=== PATIENT | male | born 1990 | race African-American/Black ===

== ENCOUNTER 2022-12-17 17:03 | Emergency (ER) | payer OTHER, SELFPAY ==
[2022-12-17 17:38] VITALS: BP 113/64; PULSE 50; RESP 18; TEMP 36.6; O2SAT 99
--- NOTE | 2022-12-17 19:24 | ED.SKABFB ---
HPI - Skin/Abscess/Foreign Bdy General Chief complaint: Skin/Abscess/Foreign Body <MARCO Thomas Last Filed: 12/17/22 23:03> Stated complaint: rash/? allergic reaction <MARCO Thomas Last Filed: 12/17/22 23:03> Time Seen by Provider: 12/17/22 18:54 <MARCO Thomas Last Filed: 12/17/22 23:03> Source: patient <MARCO Thomas Last Filed: 12/17/22 23:03> Mode of arrival: ambulatory <MARCO Thomas Last Filed: 12/17/22 23:03> Limitations: no limitations <MARCO Thomas Last Filed: 12/17/22 23:03> History of Present Illness HPI narrative: Patient is a 31 y/o male who presents to the ED with c/o rash to his R inguinal region, trunk, and back. Patient reports having an erythematous rash over the last 3 to 4 days. He states it is extremely itchy and the pruritus became worse today, which prompted his presentation. Patient has not tried anything for the rash. He denies pain associated with the rash. Denies any household members with similar symptoms. Denies fever, chills, nausea, vomiting. Denies new laundry detergents, soaps, shampoos, lotions, medications. Denies outdoor exposure. <MARCO Thomas Last Filed: 12/17/22 23:03> Related Data Allergies/Adverse reactions: Allergies Allergy/AdvReac Type Severity Reaction Status Date / Time No Known Allergies Allergy Unverified 08/28/15 17:49 <MARCO Thomas Last Filed: 12/17/22 23:03> Review of Systems Review of Systems: CONSTITUTIONAL: Denies fever, chills, or sweats. GASTROINTESTINAL: Denies nausea, vomiting. SKIN: See HPI. <MARCO Thomas Last Filed: 12/17/22 23:03> All systems reviewed & are unremarkable except as noted in HPI and below <Odalis Silverman PA-C - Last Filed: 12/17/22 23:03> [facility] Past Medical History Medical History: Medical History No pertinent past medical history <Odalis Silverman PA-C - Last Filed: 12/17/22 23:03> Surgical History Surgical History: Surgical History No pertinent past surgical history <Odalis Silverman PA-C - Last Filed: 12/17/22 23:03> Social History Social History: Social History Smoking status: Never smoker <Odalis Silverman PA-C - Last Filed: 12/17/22 23:03> Exam Narrative: GENERAL: Well appearing, well-nourished, non-toxic, in no acute distress. HEAD: Normocephalic, atraumatic. NECK: Supple. No adenopathy, no masses. RESPIRATORY: Airway patent, respirations nonlabored. CARDIOVASCULAR: Regular rate and rhythm without murmurs, rubs, or gallops. Peripheral pulses 2+ and equal bilaterally. MUSCULOSKELETAL: Moves all extremities. Strength/ROM intact without gross deformities. Scattered erythematous papules diffusely throughout the trunk, abdomen, back, right groin/waistband region. Some papules with excoriations/scabbing. No urticaria. No pustules. No vesicles. No significant burrows. No lesions on hands that are visible. SKIN: Warm, dry, normal color. No rashes. NEURO: A&O X3. Speech clear. Cranial nerves II-XII grossly intact. Steady gait. No ataxic movements. PSYCHIATRIC: Appropriate mood and affect. Normal interaction. <Odalis Silverman PA-C - Last Filed: 12/17/22 23:03> Course [employer]/PA Physician Supervision This is a was performed by both a physician and an APC. I performed all aspects of the MDM as documented w/ the following additions: 31-year-old presenting with a pruritic rash. Possibly scabies. He will be trialed on a course of permethrin. Follow up primary care physician. All questions answered. Patient in agreement w/ disposition. <Pelon Corado MD - Last Filed: 12/23/22 20:52> Vital Signs Vital signs:
== END 2022-12-17 20:01 | disposition home or self-care (01) ==
PROVIDERS: Emergency Provider Physician Assistant
DX: B86 Scabies (principal)
CPT/HCPCS: 99283